=== PATIENT | female | born 1980 | race African-American/Black ===

== ENCOUNTER 2016-05-09 09:01 | Emergency (ER) | payer SELFPAY ==
[2015-08-26 03:47] VITALS: BP 187/100
== END 2016-05-09 09:45 | disposition left against medical advice (07) ==
LOC: ER 09:01
DX: K08.89 Other specified disorders of teeth and supporting structures (principal); R73.9 Hyperglycemia, unspecified; Z53.21 Procedure and treatment not carried out due to patient leaving prior to being seen by health care provider

== ENCOUNTER 2017-06-10 19:08 | Emergency (ER) | payer OTHER ==
[2017-06-10] MEDS: FAMOTIDINE 20 MG TABLET. PO (20:15)
[2017-06-10] MEDS: CETIRIZINE HCL 10 MG TABLET. PO (20:15)
[2017-06-10] MEDS: DEXAMETHASONE SOD PHOS 20 MG/5 ML VIAL. IM (20:16)
== END 2017-06-10 20:20 | disposition home or self-care (01) ==
LOC: ER 19:08
DX: L25.9 Unspecified contact dermatitis, unspecified cause (principal); E10.8 Type 1 diabetes mellitus with unspecified complications; I10 Essential (primary) hypertension; Z88.2 Allergy status to sulfonamides; Z88.8 Allergy status to other drugs, medicaments and biological substances
CPT/HCPCS: 96372; 99283-25; J1100

== ENCOUNTER 2019-06-06 06:26 | Emergency (ER) | payer MEDICAID, OTHER ==
[~2019-06-06] VITALS: Ht 172.7 cm; Wt 81.0 kg
[~2019-06-06 06:26] MED LIST: AMLO10TA8 PO; FAMO20TA5 PO; GABA300C18 PO; HYDR25TA PO; OXYC1TAB7 PO; PRED-220 PO; Pantoprazole PO; TRIA15OI TP
--- NOTE | 2019-06-06 07:06 | PHYS DOC ---
Past Medical History Past Medical History: Anxiety, Constipation, Depression, Diabetes-Type II, Hypertension, Other Additional Past Medical Histor: SARCOIDOSIS Past Surgical History: Other Additional Past Surgical Histo: THROAT BIOPSY Smoking Status: Current Every Day Smoker Alcohol Use: None Drug Use: Marijuana Adult General Chief Complaint Chief Complaint: CONSTIPATION HPI HPI Patient is a 39 year old female with history of hypertension, diabetes mellitus, depression and anxiety, constipation, sarcoidosis who presents with complaint of not able to have a bowel movement for 2 and half weeks. Patient states she usually have bowel movement every morning but for the last 2 months after changing her psychiatric medication she started to have constipation and did not have any bowel movement for the last 2 and a half weeks even she took [id number] and prescribed medication including senna, MiraLAX, Dulcolax, magnesium citrate, Fleet enema. Patient complaining of abdominal discomfort feeling and distention. Patient states she passing gas more frequent. Patient denies nausea and vomiting, fever and chills, shortness of breath and chest pain . Patient states she takes ibuprofen and few leftover of hydrocodone for abdominal pain and rated her pain 8/10. Review of Systems Review of Systems Constitutional: Denies fever or chills [] Eyes: Denies change in visual acuity, redness, or eye pain [] HENT: Denies nasal congestion or sore throat [] Respiratory: Denies cough or shortness of breath [] Cardiovascular: No additional information not addressed in HPI [] GI: Reports abdominal pain, constipation, denies nausea, vomiting, bloody stools or diarrhea [] : Denies dysuria or hematuria [] Musculoskeletal: Denies back pain or joint pain [] Integument: Denies rash or skin lesions [] Neurologic: Denies headache, focal weakness or sensory changes [] Endocrine: Denies polyuria or polydipsia [] All other systems were reviewed and found to be within normal limits, except as documented in this note. Current Medications Current Medications Current Medications Medications (Trade) Dose Ordered Sig/Ross Start Time Stop Time Status Last Admin Dose Admin Insulin Human Regular (HumuLIN R VIAL) 10 unit 1X ONCE 06/06/19 08:00 06/06/19 08:06 DC 06/06/19 08:15 10 UNIT Allergies Allergies Allergies Coded Allergies Type Severity Reaction Last Updated Verified Sulfa (Sulfonamide Antibiotics) Allergy Intermediate 08/26/15 Yes lisinopril Allergy Intermediate 08/26/15 Yes Physical Exam Physical Exam Constitutional: Well nourished, mild distress, non-toxic appearance. [] HENT: Normocephalic, atraumatic. Eyes: PERRLA, EOMI, conjunctiva normal, no discharge. [] Neck: Normal range of motion, no tenderness, supple, no stridor. [] Cardiovascular:Heart rate regular rhythm, no murmur [] Lungs & Thorax: Bilateral breath sounds clear to auscultation [] Abdomen: Bowel sounds hyperactive, soft, mildly distended with gas, no tenderness, no masses, no pulsatile masses. Rectal exam in present of blue line trimmer showed empty rectum. Skin: Warm, dry, no erythema, no rash. [] Back: No tenderness, no CVA tenderness. [] Extremities: No tenderness, no cyanosis, no clubbing, ROM intact, no edema. [] Neurologic: Alert and oriented X 3, no focal deficits noted. [] Psychologic: Affect anxious, judgement normal, mood normal. [] Current Patient Data Vital Signs Vital Signs Date Time Temp Pulse Resp B/P (MAP) Pulse Ox O2 Delivery O2 Flow Rate FiO2 06/06/19 07:28 92 16 154/81 (105) 99 Room Air 06/06/19 06:45 98.1 98.1 Lab Values Laboratory Tests Test 06/06/19 06:47 06/06/19 06:49 06/06/19 09:06 Urine Collection Type Void Urine Color Yellow Urine Clarity Clear Urine pH 6.0 (<5.0-8.0) Urine Specific Perry >=1.030 (1.000-1.030) Urine Protein Negative mg/dL (NEG-TRACE) Urine Glucose (UA) >=1000 mg/dL (NEG) Urine Ketones (Stick) Negative mg/dL (NEG) Urine Blood Trace (NEG) Urine Nitrite Negative (NEG) Urine Bilirubin Negative (NEG) Urine Urobilinogen Dipstick 0.2 mg/dL (0.2 mg/dL) Urine Leukocyte Esterase Small (NEG) Urine RBC 6-10 /HPF (0-2) Urine WBC 20-40 /HPF (0-4) Urine Squamous Epithelial Cells Few /LPF Urine Bacteria Moderate /HPF (0-FEW) POC Urine HCG, Qualitative Hcg negative (Negative) Glucose (Fingerstick) 340 mg/dL (70-99) H EKG EKG [] Radiology/Procedures Radiology/Procedures [facility] [address] [place] [address] IMAGING REPORT Signed PATIENT: HARPREET SHARMA ACCOUNT: [id number] : 1980 LOCATION: ER AGE: 39 SEX: F EXAM STATUS: REG ER ORD. PHYSICIAN: MAX FLORES MD REASON: Constipation X 2 WEEKS PROCEDURE: ABDOMEN SUPINE & UPRIGHT Examination: Supine and upright views of the abdomen HISTORY: History of constipation for 2 weeks COMPARISON: None available FINDINGS: The bibasilar lungs are clear. The bowel gas pattern appears unremarkable. Feces and gas noted in the colon. IMPRESSION: 1. Nonspecific bowel gas pattern. 2. Feces and gas noted in the colon. Correlate for constipation. Electronically signed by: Anthony Pollock MD (06/06/2019 7:39 AM) [id number] DICTATED and SIGNED BY: ANTHONY POLLOCK MD DATE: 06/06/19 0739 Course & Med Decision Making Course & Med Decision Making Pertinent Labs and Imaging studies reviewed. (See chart for details) Evaluation of patient ER showed 39-year-old female patient with history of anxiety and depression psychiatric medication and complaining of constipation for 2 and half weeks. Patient had unremarkable exam except for anxiety and mild distention of abnormalities of bowel sounds without the stool in the rectum. X-ray of abdomen showed no air-fluid level with moderate amount of stool in the intestine. UA showed UTI. Patient had blood sugar of 374 and stated she did not take her medication today. Patient treated with 10 units of insulin subcu with drop of blood sugar to 340. Patient was advised to continue home medicat ion and follow-up diabetic diet. Prescription for GoLYTELY and Cipro was given and patient was advised to follow-up with her primary care physician regarding long-term treatment of constipation. Dragon Disclaimer Dragon Disclaimer This electronic medical record was generated, in whole or in part, using a voice recognition dictation system. Departure Departure Impression: Primary Impression: Constipation Additional Impressions: Urinary tract infection Uncontrolled diabetes mellitus Disposition: HOME, SELF-CARE Condition: STABLE Referrals: ALFONSO ANSARI (PCP) Patient Instructions: 1800 Calorie Diet for Diabetes Meal Planning, Constipation, Adult, Hyperglycemia, Urinary Tract Infection Additional Instructions: Drink plenty of liquids Follow-up with your primary care physician in 3-5 days for long-term treatment of constipation Return to ER if not getting better Thank you for visiting [facility]. We appreciate you trusting us with your care. If any additional problems come up don't hesitate to return to visit us. Please follow up with your primary care provider so they can plan additional care if needed and know about the problem that you had. If symptoms worsen come back to the Emergency Department. Any concerning symptoms that start such as chest pain, shortness of air, weakness or numbness on one side of the body, running high fevers or any other concerning symptoms return to the ER. Scripts Ciprofloxacin Hcl (CIPRO) 250 Mg Tablet 1 TAB PO BID for infection, #14 TAB Prov: MAX FLORES MD 06/06/19 Peg 3350/Na Sulf,Bicarb,Cl/Kcl (GOLYTELY SOLUTION) 4,000 Ml Soln.recon 4000 ML PO 1X, #1 MISC Drink 1 cup every an hour until having a bowel movements Prov: MAX FLORES MD 06/06/19 Problem Qualifiers Primary Impression: Constipation Constipation type: unspecified constipation type Qualified Codes: K59.00 - Constipation, unspecified Additional Impressions: Urinary tract infection Urinary tract infection type: site unspecified Hematuria presence: without hematuria Qualified Codes: N39.0 - Urinary tract infection, site not specified Uncontrolled diabetes mellitus Diabetes mellitus type: other specified (including POOJA) Glycemic state: with hyperglycemia Qualified Codes: E13.65 - Other specified diabetes me llitus with hyperglycemia MAX FLORES MD Jun 06, 2019 07:06
[2019-06-06 07:32] LABS: BILIRUBIN,URINE NEGATIVE (NEG); CLARITY,URINE CLEAR; COLOR,URINE YELLOW; NITRITE,URINE NEGATIVE (NEG); PROTEIN,URINE NEGATIVE (NEG-TRACE); UROBILINOGEN,URINE 0.2 mg/dL (0.2 mg/dL)
--- NOTE | 2019-06-06 07:41 | RAD ---
Examination: Supine and upright views of the abdomen HISTORY: History of constipation for 2 weeks COMPARISON: None available FINDINGS: The bibasilar lungs are clear. The bowel gas pattern appears unremarkable. Feces and gas noted in the colon. IMPRESSION: 1. Nonspecific bowel gas pattern. 2. Feces and gas noted in the colon. Correlate for constipation. Electronically signed by: Anthony Pollock MD (06/06/2019 7:39 AM) [id number]
[2019-06-06 07:44] LABS: BACTERIA,URINE MODERATE /HPF (0-FEW); SQUAMOUS EPITHELIAL CELL,UR FEW /LPF; WBC,URINE 20-40 /HPF (0-4)
[2019-06-06] MEDS ORDERED: PEG4000S8 PO (07:58)
[2019-06-06] MEDS ORDERED: CIPR250T30 PO (07:58)
[2019-06-06] MEDS ORDERED: INSULIN REGULAR 100 UNIT/ML 3ML VIAL. SQ ONE (08:00)
[2019-06-06 08:58] VITALS: BP 164/92
== END 2019-06-06 09:25 | disposition home or self-care (01) ==
LOC: ER 06:26
DX: K59.00 Constipation, unspecified (principal); N39.0 Urinary tract infection, site not specified; E11.65 Type 2 diabetes mellitus with hyperglycemia; F41.9 Anxiety disorder, unspecified; F32.9 Major depressive disorder, single episode, unspecified; I10 Essential (primary) hypertension; D86.9 Sarcoidosis, unspecified; F12.90 Cannabis use, unspecified, uncomplicated; F17.200 Nicotine dependence, unspecified, uncomplicated; Z98.890 Other specified postprocedural states; Z88.2 Allergy status to sulfonamides; Z88.6 Allergy status to analgesic agent
CPT/HCPCS: 74021; 81001; 81025; 82962; 87086; 96372; 99285; J1815

== ENCOUNTER 2019-08-06 10:26 | Emergency (ER) | payer MEDICAID ==
[~2019-08-06] VITALS: Ht 172.7 cm; Wt 74.0 kg
[~2019-08-06 10:26] MED LIST changes: +CIPR250T30 PO; +PEG4000S8 PO
[2019-08-06 10:45] VITALS: BP 168/93
--- NOTE | 2019-08-06 11:37 | PHYS DOC ---
Past Medical History Past Medical History: Anxiety, Constipation, Depression, Diabetes-Type II, Hypertension, Other Additional Past Medical Histor: SARCOIDOSIS Past Surgical History: Other Additional Past Surgical Histo: THROAT BIOPSY Smoking Status: Current Every Day Smoker Alcohol Use: None Drug Use: Marijuana General Adult EDM: Chief Complaint: PAIN CONTROL HPI: HPI: Patient is a 39 year old female with a history of diabetes and neuropathy who presents with bilateral leg pain. She states that she has had neuropathy for the last year. She is had a worsening neuropathy pain over the last month. Her primary care doctor increased her gabapentin 2 weeks ago. She saw pain specialist last week who has her scheduled her for nerve blocks in 3 weeks. She states she cannot make it until then. She needs something for pain now. There is no change in her pain at this time. She has not had any trauma. She has not had any coldness to her limbs or inability to walk. Review of Systems: Review of Systems: General: Denies fever, chills, sweats, fatigue Eyes: Denies drainage, blurred vision HENT: Denies rhinorrhea, sore throat Respiratory: Denies cough, shortness of breath, wheezing Cardiac: Denies edema, palpitations, chest pain GI: Denies abdominal pain, N/V MSK: Denies back pain, neck pain Skin: Denies rash, jaundice Neuro: Denies headache, dizziness Psychiatric: Denies SI/HI Heart Score: Risk Factors: Risk Factors: DM, Current or recent (<one month) smoker, HTN, HLP, family history of CAD, obesity. Risk Scores: Score 0 - 3: 2.5% MACE over next 6 weeks - Discharge Home Score 4 - 6: 20.3% MACE over next 6 weeks - Admit for Clinical Observation Score 7 - 10: 72.7% MACE over next 6 weeks - Early Invasive Strategies Allergies: Allergies: Allergies Coded Allergies Type Severity Reaction Last Updated Verified Sulfa (Sulfonamide Antibiotics) Allergy Intermediate 08/26/15 Yes lisinopril Allergy Intermediate 08/26/15 Yes Physical Exam: PE: Constitutional: Well developed, well nourished, Cooperative, NAD, non-toxic appearing HEENT: Normocephalic, atraumatic, oropharynx moist, EOMI, PERRL, no drainage from eyes, normal conjunctiva Neck: Supple, normal range of motion, no stridor Cardiovascular: RRR, 2+ radial pulses bilaterally, no edema Respiratory: CTA bilaterally, no respiratory distress, no wheezing/crackles Abdomen: Soft, nontender, nondistended, no masses Skin: Warm, dry, intact Extremities: No obvious deformities, bilateral lower extremities with decreased sensation, no signs of swelling or trauma, 2+ DP pulses bilaterally, normal cap refill. Neurologic: Alert and Oriented x3, motor function grossly normal, no focal deficits Psychologic: Normal affect, normal judgment, normal mood. No SI/HI Current Patient Data: Labs: Laboratory Tests Test 08/06/19 10:44 08/06/19 10:53 POC Urine HCG, Qualitative Hcg negative (Negative) Glucose (Fingerstick) 277 mg/dL (70-99) H Vital Signs: Vital Signs Date Time Temp Pulse Resp B/P (MAP) Pulse Ox O2 Delivery O2 Flow Rate FiO2 08/06/19 10:45 98.0 119 16 168/93 (118) 100 Room Air 98.0 EKG: EKG: [] Radiology/Procedures: Radiology/Procedures: [] Impression: Neuropathy Course & Med Decision Making: Course & Med Decision Making Pertinent Labs and Imaging studies reviewed. (See chart for details) Patient is a 39 year old female with chronic neuropathy pain who presents c/o chronic pain. She has good circulation in bilateral lower extremities and no signs of trauma. There is no indication for further testing at this time. I have discussed with the patient that she will need to address pain management with her PCP and pain specialist. Patient's test results and vitals while in the ED were fully reviewed and discussed with the patient. Patient is stable and at this time does not need admission to the hospital. We have discussed strict return precautions and the importance of following up with their Primary Care Physician. Patient stated understanding and was given an opportunity to ask any questions. Dragon Disclaimer: Dragon Disclaimer: This electronic medical record was generated, in whole or in part, using a voice recognition dictation system. Departure Departure Impression: Primary Impression: Neuropathy Additional Impression: Chronic pain Disposition: HOME, SELF-CARE Condition: STABLE Referrals: ALFONSO ANSARI (PCP) Scripts Methocarbamol (ROBAXIN-750) 750 Mg Tablet 1 TAB PO BID PRN for PAIN for 30 Days, #15 TAB 0 Refills Prov: LAUREN CRANDALL MD 08/06/19 LAUREN CRANDALL MD August 06, 2019 11:37
[2019-08-06] MEDS ORDERED: METH-38 PO (11:41)
== END 2019-08-06 11:52 | disposition home or self-care (01) ==
LOC: ER 10:26
DX: E11.40 Type 2 diabetes mellitus with diabetic neuropathy, unspecified (principal); G89.29 Other chronic pain; M79.604 Pain in right leg; M79.605 Pain in left leg; I10 Essential (primary) hypertension; F17.200 Nicotine dependence, unspecified, uncomplicated; Z88.2 Allergy status to sulfonamides; Z88.8 Allergy status to other drugs, medicaments and biological substances
CPT/HCPCS: 81025; 82962; 99283

== ENCOUNTER 2021-02-28 10:53 | Emergency (ER) | payer MEDICAID ==
[~2021-02-28] VITALS: Ht 170.2 cm; Wt 97.5 kg
[~2021-02-28 10:53] MED LIST changes: +AMLO-187 PO; -AMLO10TA8 PO; +METH-38 PO
[2021-02-28] MEDS ORDERED: KETOROLAC 60 MG/2 ML VIAL. IM ONE (11:30)
[2021-02-28] MEDS ORDERED: HYDROcodone/APAP 5/325MG 1 TAB TABLET PO ONE (11:30)
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
[2021-02-28] MEDS ORDERED: HYDR-2761 PO (12:43)
[2021-02-28] MEDS ORDERED: IBUP-1007 PO (12:43)
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
[2021-02-28] MEDS ORDERED: BACITRACIN TOPICAL OINT PACKET. TP ONE (13:00)
[2021-02-28 13:28] VITALS: BP 164/77
== END 2021-02-28 13:39 | disposition home or self-care (01) ==
LOC: ER 10:53
DX: S92.512A Displaced fracture of proximal phalanx of left lesser toe(s), initial encounter for closed fracture (principal); S50.02XA Contusion of left elbow, initial encounter; S50.311A Abrasion of right elbow, initial encounter; E11.9 Type 2 diabetes mellitus without complications; I10 Essential (primary) hypertension; F17.200 Nicotine dependence, unspecified, uncomplicated; Z88.2 Allergy status to sulfonamides; Z88.6 Allergy status to analgesic agent; Y08.89XA Assault by other specified means, initial encounter; Y93.89 Activity, other specified; Y92.89 Other specified places as the place of occurrence of the external cause; Y99.8 Other external cause status
CPT/HCPCS: 73080; 73552; 73590; 73600; 73630; 96372; 99285; J1885